=== PATIENT | male | born 1980 | race Two or more races ===

== ENCOUNTER 2024-05-17 16:22 | Emergency (ER) | payer OTHER ==
[~2024-05-17] VITALS: Ht 177.8 cm; Wt 79.9 kg
[2024-05-17 16:34] VITALS: BP 138/95; PULSE 76; RESP 20; O2SAT 100
[2024-05-18] MEDS ORDERED: IBUP-1456 PO
== END 2024-05-17 18:22 | disposition left against medical advice (07) ==
LOC: ER 16:22
DX: M79.641 Pain in right hand (principal); R60.9 Edema, unspecified; Z53.21 Procedure and treatment not carried out due to patient leaving prior to being seen by health care provider

== ENCOUNTER 2024-05-17 23:05 | Emergency (ER) | payer OTHER ==
[~2024-05-17] VITALS: Ht 177.8 cm; Wt 82.2 kg
--- NOTE | 2024-05-17 23:51 | ED.PDOC ---
Musculoskeletal HPI Comments 44-year-old male presents to ER with right hand pain x2 days. Patient reports that his right hand accidentally got "smashed" in the gutierres of a truck two days ago and has since been experiencing pain/swelling/bruising to right hand. Patient had checked into ER here earlier today for the same complaint but ended up "falling asleep" in his truck for several hours. He rates his current pain a 6/10 to right hand without radiation. Notes that he took a [place] that he had left over from a prior prescription for his pain with some relief. Denies numbness/tingling, right wrist pain or any further symptoms/complaints of Chief Complaint: Upper Extremity Time Seen by MD: 23:10 Primary Care Provider: JOI Reviewed Notes: Nurses Notes, Medications, Allergies Allergies: Coded Allergies: NO KNOWN ALLERGIES (Unverified , 05/17/24) Home Meds Active Scripts Ibuprofen (Ibuprofen) 800 Mg Tab, 1 TAB PO TID PRN, #30 TAB 0 Refills Prov:JUANA LA 05/18/24 Information Source: Patient Mode of Arrival: Ambulatory Past Medical History PAST MEDICAL HISTORY: Denies Surgical History: Denies all surgeries Family History Family History: Unknown Social History Smoker: Non-Smoker Alcohol: Denies ETOH Use Drugs: Marijuana Lives In: Home Constitutional: denies: chills, diaphoresis, fatigue, fever, malaise, sweats, weakness, others EENTM: denies: blurred vision, double vision, ear bleeding, ear discharge, ear drainage, ear pain, ear ringing, eye pain, eye redness, hearing loss, mouth pain, mouth swelling, nasal discharge, nose bleeding, nose congestion, nose pain, photophobia, tearing, throat pain, throat swelling, voice changes, others Respiratory: denies: cough, hemoptysis, orthopnea, SOB at rest, shortness of breath, SOB with excertion, stridor, wheezing, others Cardiovascular: denies: chest pain, dizzy spells, diaphoresis, Dyspnea on exertion, edema, irregular heart beat, left arm pain, lightheadedness, palpitations, PND, syncope, others Gastrointestinal: denies: abdomen distended, abdominal pain, blood streaked bowels, constipated, diarrhea, dysphagia, difficulty swallowing, hematemesis, melena, nausea, poor appetite, poor fluid intake, rectal bleeding, rectal pain, vomiting, others Genitourinary: denies: burning, dysuria, flank pain, frequency, hematuria, incontinence, penile discharge, penile sore, pain, testicle pain, testicle swelling, urgency, others Neurological: denies: dizziness, fainting, headache, left sided numbness, left sided weakness, numbness, paresthesia, pre-existing deficit, right sided numbness, right sided weakness, seizure, speech problems, tingling, tremors, weakness, others Musculoskeletal: reports: others (As stated in HPI) Integumetry: reports: others (As stated in HPI) Allergic/Immunocompromised: denies: Difficulty Healing, Frequent Infections, Hives, Itching, others Hematologic/Lymphatic: denies: anemia, blood clots, easy bleeding, easy bruising, swollen glands, others Endocrine: denies: excessive hunger, excessive sweating, excessive thirst, excessive urination, flushing, intolerance to cold, intolerance to heat, unexpl ained weight gain, unexplained weight loss, others Psychiatric: denies: anxiety, bipolar disorder, depression, hopeless, panic disorder, schizophrenia, sleepless, suicidal, others Physical Exam General Appearance: No Apparent Distress HEENT: PERRL/EOMI Neck: Full Range of Motion, Non-Tender, Normal Respiratory: Chest Non-Tender, Lungs Clear, No Accessory Muscle Use, No Respiratory Distress, Normal Breath Sounds Cardiovascular: No Murmur, No Gallop, Regular Rate/Rhythm Breast Exam: Deferred Gastrointestinal: NOT DONE Genitalia: Deferred Pelvic: Deferred Rectal: Deferred Extremities: Normal capillary refill, Normal range of motion Musculoskeletal : Extremity Location: Hand (TTP/mild swelling/ecchymosis noted to region of right 4th and 5th metacarpal to base of right 5th distal phalanx. No nailbed injury/ further skin changes noted. Patient able to fully move all fingers right hand. No TTP to right wrist noted. Pulses intact) Neurologic: Alert, engraved roller inspector II-XII nml as Tested, No Motor Deficits, Normal Affect, Normal Mood, No Sensory Deficits Cerebellar Function: Normal Reflexes: Normal Skin: Dry, Normal Color, Warm Peripheral Pulses: 2+ Radial (R), 2+ Radial (L), 2+ Brachial (R), 2+ Brachial (L) Lymphatic: No Adenopathy Was a procedure done? Was a procedure done?: No Sedation Sedation?: No Differential Diagnosis EXT Differential Diagnosis: Dislocation, Laceration, Neurovascular injury X-Ray, Labs, Meds, VS Vital Signs Date Time Temp Pulse Resp B/P (MAP) Pulse Ox O2 Delivery O2 Flow Rate FiO2 05/17/24 23:58 98.6 84 20 157/93 (114) 96 98.6 05/17/24 23:58 84 18 96 Room Air 05/17/24 23:18 98.6 84 18 157/93 (114) 96 PATIENT: PARKER TORRESCCT: [id number]: [id number] : 1980 LOC: ER ROOM / BED: / AGE / SEX: 44 / M ADM STATUS: [facility] ER SERVICE [id number] ORDERING PHYSICIAN: JUANA LA PROCEDURE(s): RHAN - R HAND 3 VIEW XRAY REASON: right hand pain ORDER NUMBER(s): [id number], ACCESSION NUMBER(s): [id number] CLINICAL INDICATION: right hand pain TECHNIQUE: XY R HAND 3 VIEW XRAY Comparison: None FINDINGS: Mildly displaced fractures of the proximal 4th and 5th metacarpals with overlying soft tissue swelling. There is a mildly displaced comminuted fracture of the base of the 5th distal phalanx with intra-articular extension into the d IP joint. Soft tissue swelling overlies the dorsum of the hand The visualized joint space is well maintained. The alignment is anatomical. There is no radiopaque foreign body. IMPRESSION: 1. Mildly displaced fractures of the proximal 4th and 5th metacarpals with Overlying soft tissue swelling. 2. Mildly displaced comminuted fracture of the base of the 5th distal phalanx with intra-articular extension into the distal interphalangeal joint. ATED BY: SENG VERDE MD DICTATED DATE/TIME: 05/18/24143 SIGNED BY: SENG VERDE MD SIGNED DATE/TIME: 05/18/24143 CC: Right hand x-ray reviewed Patient neurovascularly intact Right boxer's splint applied Advised on rest/ no strenuous activity, elevation and alternate ice on/off as needed for pain/swelling Advised to follow up with PCP and orthopedics in 1-2 days Patient verbalized understanding and agreeable with current plan of care Advised to return to ER immediately if symptoms worsen Images Reviewed?: Images reviewed and evaluated by me Time of 1ST Reevaluation: 23:44 Reevaluation 1ST: N/A Patient Education/Counseling: Diagnosis, Treatment, Prognosis, Need For Follow Up Family Education/Counseling: No Family Present Departure 1 Departure Time of Disposition: 00:00 Impression: Primary Impression: Fracture of fifth metacarpal bone Qualified Codes: S62.306A - Unspecified fracture of fifth metacarpal bone, right hand, initial encounter for closed fracture Additional Impressions: Fracture of fourth metacarpal bone Qualified Codes: S62.304A - Unspecified fracture of fourth metacarpal bone, right hand, initial encounter for closed fracture Phalanx, distal fracture of finger Qualified Codes: S62.636A - Displaced fracture of distal phalanx of right little finger, initial encounter for closed fracture Disposition: 01 HOME / SELF CARE / HOMELESS Condition: Stable e-Prescriptions Ibuprofen (Ibuprofen) 800 Mg Tab 1 TAB PO TID PRN, #30 TAB 0 Refills Prov: JUANA LA 05/18/24 Discharged With: Friend Critical Care Note Critical Care Time?: No Stability Stability form required: No Heart Score Heart Score: Heart Score Response (Comments) Value History N/A 0 EKG N/A 0 Age N/A 0 Risk Factors N/A 0 Troponin N/A 0 Total 0 JUANA LA May 17, 2024 23:50
[2024-05-17 23:58] VITALS: BP 157/93; PULSE 84; RESP 18; TEMP 98.6; O2SAT 96
[2024-05-18] MEDS ORDERED: IBUP-1456 PO
--- NOTE | 2024-05-18 01:46 | DVH ---
CLINICAL INDICATION: right hand pain TECHNIQUE: XY R HAND 3 VIEW XRAY Comparison: None FINDINGS: Mildly displaced fractures of the proximal 4th and 5th metacarpals with overlying soft tissue swellin g. There is a mildly displaced comminuted fracture of the base of the 5th distal phalanx with intra-a rticular extension into the d IP joint. Soft tissue swelling overlies the dorsum of the hand The visualized joint space is well maintained. The alignment is anatomical. There is no radiopaque foreign body. IMPRESSION: 1. Mildly displaced fractures of the proximal 4th and 5th metacarpals with Overlying soft tissue swel ling. 2. Mildly displaced comminuted fracture of the base of the 5th distal phalanx with intra-articular ex tension into the distal interphalangeal joint.
== END 2024-05-18 00:14 | disposition home or self-care (01) ==
LOC: ER 23:05
DX: S62.316A Displaced fracture of base of fifth metacarpal bone, right hand, initial encounter for closed fracture (principal); S62.314A Displaced fracture of base of fourth metacarpal bone, right hand, initial encounter for closed fracture; S62.606A Fracture of unspecified phalanx of right little finger, initial encounter for closed fracture; F12.90 Cannabis use, unspecified, uncomplicated; X58.XXXA Exposure to other specified factors, initial encounter; Y93.89 Activity, other specified; Y92.89 Other specified places as the place of occurrence of the external cause; Y99.8 Other external cause status
CPT/HCPCS: 29125; 73130